=== PATIENT | male | born 1990 | race African-American/Black ===

== ENCOUNTER 2017-12-08 19:33 | Emergency (ER) | payer SELFPAY ==
[~2017-12-08] VITALS: Ht 188 cm; Wt 92.0 kg
[2017-12-08 20:27] VITALS: BP 124/71
== END 2017-12-09 03:00 | disposition left against medical advice (07) ==
LOC: ER 12-09 02:51
DX: Z53.21 Procedure and treatment not carried out due to patient leaving prior to being seen by health care provider (principal)

== ENCOUNTER 2018-03-15 03:15 | Emergency (ER) | payer OTHER ==
[~2018-03-15] VITALS: Ht 182.9 cm; Wt 87.0 kg
[2018-03-15] MEDS ORDERED: MAGNESIUM/ALUMINUM HYDROXIDE/SIMETHICONE 30ML UDC PO STA (05:05)
[2018-03-15] MEDS ORDERED: VISCOUS LIDOCAINE 2% 15 ML UDC PO STA (05:05)
[2018-03-15] MEDS ORDERED: METOCLOPRAMIDE HCL 10MG TABLET PO ONE (05:15)
[2018-03-15 06:37] VITALS: BP 110/72
== END 2018-03-15 06:37 | disposition home or self-care (01) ==
LOC: ER 03:15
DX: K21.9 Gastro-esophageal reflux disease without esophagitis (principal); F12.10 Cannabis abuse, uncomplicated; F17.200 Nicotine dependence, unspecified, uncomplicated
CPT/HCPCS: 99283; J8597

== ENCOUNTER 2018-03-21 15:09 | Emergency (ER) | payer OTHER ==
[~2018-03-21] VITALS: Ht 182.9 cm; Wt 87.0 kg
[2018-03-21] MEDS ORDERED: METOCLOPRAMIDE HCL 10MG/2ML VIAL IV STA (23:58)
[2018-03-21] MEDS ORDERED: MAGNESIUM/ALUMINUM HYDROXIDE/SIMETHICONE 30ML UDC PO STA (23:58)
[2018-03-22 01:12] LABS: BASOPHILS % 1.1 % (0.0-2.0); EOSINOPHILS % 2.2 % (0.0-5.0); HEMATOCRIT. 42.5 % (42.0-52.0); HEMOGLOBIN. 14.8 g/dL (14.0-18.0); LYMPHOCYTES % 44.3 % (20.0-50.0); MEAN CORPUSCULAR HEMOGLOBIN 27.7 pg (28.0-32.0); MEAN CORPUSCULAR VOLUME 79.7 fL (80.0-94.0); MONOCYTES % 7.6 % (2.0-8.0); NEUTROPHILS % 44.8 % (40.0-76.0); PLATELET 294 x1000/uL (130-400); RED BLOOD CELL COUNT 5.33 mill/uL (4.7-6.1); RED CELL DISTRIBUTION WIDTH 13.3 % (11.6-14.6)
[2018-03-22 01:18] LABS: CHLORIDE 109 mEq/L (98-107)
[2018-03-22 02:05] VITALS: BP 115/75
== END 2018-03-22 02:08 | disposition home or self-care (01) ==
LOC: ER 15:09
DX: K21.9 Gastro-esophageal reflux disease without esophagitis (principal)
CPT/HCPCS: 36415; 71045; 80053; 83690; 85025; 93005; 96374; 99284; J2765; Z7610